=== PATIENT | male | born 1995 | race Caucasian/White ===

== ENCOUNTER 2017-01-05 14:21 | Emergency (ER) | payer MEDICARE, OTHER ==
[2017-01-05 14:33] VITALS: TEMP 98.2
[2017-01-05] MEDS ORDERED: RX INFO: IV CONTRAST WAS GIVEN 1 EACH MISC MISCELLANE PRN (15:39)
--- NOTE | 2017-01-05 15:45 | ED ---
General Adult HPI - General Chief complaint: Urogenital Stated complaint: GROIN PAIN Time Seen by Provider: 01/05/17 14:33 Source: patient, EMS Mode of arrival: EMS Limitations: no limitations - History of Present Illness Initial comments: Patient is a 21-year-old male who presents to the emergency department via private vehicle for evaluation of left lower quadrant abdominal pain as well as pain in his right-sided chest. Patient states that he was evaluated at an outside hospital approximately 2 weeks ago for similar symptoms. He states that he was told he has a varicocele but had no other acute findings and was discharged home. Patient states he believes that they did identify other findings that the ER but that they are not telling him. Patient states that if his workup reveals anything further he plans to devyn the other hospital for not telling him what they found when the evaluated him. Patient states that he had a liver biopsy at the age of 8 and ever since that time he expects experienced a pain in his right-sided lower chest at the location of that biopsy. Patient states he believes they injured him more implanted something at the time of the biopsy. Patient states that for a number of months he has been experiencing pain left- sided groin. When asked to describe the pain patient states that it's pain and points to the location of the pain. Patient does not identify any exacerbating or relieving factors for the pain. Patient also states that earlier today he felt subjectively febrile. He states that he was at his sister's house when he began to feel very hot and concerned that he was going to have a heat stroke. He states that he did not have heatstroke at that he felt very hot. Patient states he doesn't know what is wrong but he believes something is wrong inside of his body but nobody can identify. Patient states that he thinks he is going to though he cannot explain why. - Related Data Home Medications Medication Instructions Recorded Confirmed No Known Home Medications [No 01/05/17 01/05/17 Known Home Medications] Allergies Allergy/AdvReac Type Severity Reaction Status Date / Time azithromycin Allergy Unknown Verified 01/05/17 14:27 [From Zithromax Z-Bruno] Review of Systems ROS Statement: Those systems with pertinent positive or pertinent negative responses have been documented in the HPI. ROS Other: All systems not noted in ROS Statement are negative. Constitutional: Reports: fever. Denies: chills Eyes: Denies: vision change ENT: Denies: throat pain Respiratory: Denies: cough, dyspnea, wheezes, hemoptysis, stridor Cardiovascular: Reports: chest pain (right lower chest x13 years) Endocrine: Reports: fatigue Gastrointestinal: Reports: abdominal pain. Denies: nausea, vomiting, diarrhea, constipation Genitourinary: Reports: testicular mass. Denies: urgency, dysuria, frequency Musculoskeletal: Denies: back pain Skin: Denies: rash Neurological: Denies: headache, weakness Hematological/Lymphatic: Denies: easy bleeding, easy bruising Past Medical History Past Medical History: Liver Disease Additional Past Medical History / Comment(s): hep B/C History of Any Multi-Drug Resistant Organisms: None Reported Past Surgical History: Hernia Repair Additional Past Surgical History / Comment(s): liver biopsy x 3 Past Psychological History: ADD/ADHD, Depression Smoking Status: Current every day smoker Past Alcohol Use History: None Reported Past Drug Use History: None Reported General Exam Limitations: no limitations General appearance: alert, anxious Head exam: Present: atraumatic, normocephalic Eye exam: Present: normal appearance, PERRL ENT exam: Present: normal exam Neck exam: Present: normal inspection Respiratory exam: Present: normal lung sounds bilaterally. Absent: respiratory distress, wheezes, rales, rhonchi, stridor Cardiovascular Exam: Present: regular rate, normal rhythm, normal heart sounds. Absent: systolic murmur, diastolic murmur, rubs, gallop, clicks GI/Abdominal exam: Present: soft, normal bowel sounds. Absent: distended, tenderness, guarding, rebound, rigid exam: Present: scrotal swelling (left sided varicocele). Absent: testicular tenderness, urethral discharge Extremities exam: Present: normal inspection, full ROM, normal capillary refill. Absent: tenderness, pedal edema, joint swelling, calf tenderness Back exam: Present: normal inspection Neurological exam: Present: alert, oriented X3, CN II-XII intact Psychiatric exam: Present: agitated, other (odd affect, paranoid and defensive, tangential thoughts) Course Vital Signs 01/05/17 01/05/17 01/05/17 14:27 16:30 17:07 Temperature 98.2 F 98.2 F Pulse Rate 52 L 50 L 53 L Respiratory 16 18 Rate Blood Pressure 114/68 119/69 119/72 O2 Sat by Pulse 100 98 100 Oximetry Medical Decision Making - Medical Decision Making The patient was seen and evaluated, history was obtained from the patient Vital signs were reviewed, patient was noted to be bradycardic however this is not unexpected for a physically fit young man who is not having any lightheadedness History is somewhat vague and all over the place. The patient appears to be somewhat paranoid and had likely has underlying psychiatric illness. When questioned about previous psychiatric history the patient denies any. However the patient does state he's been hospitalized multiple times in hospitals that were different from this, when asked to expand on this patient states he doesn' t want to talk about it this is not why he is here today. Patient has a diagnosed left varicocele, he was evaluated and [facility] and referred to urology however he has moved appear since then and needs follow-up in this area. Patient also has subjective left lower groin pain, concerning for hernia. Physical exam with possible small inguinal hernia, I will plan to computed tomography scan for possible hernia. Chest x-ray was ordered due to the patient's complaint of persistent right- sided chest pain. Patient seems to indicate that this pain is been present since his liver biopsy at the age of 8. However patient expresses concern that this pain may be something life threatening, physical exam is unremarkable but I will x-ray to evaluate the chest. I advised the patient plan for IV, lab work, computed tomography scan of the abdomen and chest x-ray. Patient was then overheard talking on the phone stating that he had hernia and needed to go to emergent surgery and that he would not be able to leave the hospital for a couple of days and that he will be able to walk for some time. Are not sure patient obtain this information is not the plan of care for him. CBC and BMP were unremarkable, chest x-ray with no acute findings computed tomography scan of the abdomen had no acute findings. All results were discussed with the patient who again expresses concern that something is wrong. Patient seems very annoyed. I asked the patient if he would like referral to outpatient therapy or psychiatry for his anxiety. Patient states that he can get his own follow-up and does not want to talk to social insurance adviser major case detective. I advised the patient that he needs to follow up with urology for further evaluation of his varicocele. I also advised the patient that he would be best served by establishing care with a primary care physician who could see him repeatedly for continuity of care of his multiple complaints. Patient expressed understanding of this plan. Questions pertaining to care were answered to the best my ability and the patient was discharged home. - Lab Data Result diagrams: 01/05/17 15:50 01/05/17 15:50 Lab Results 01/05/17 01/05/17 01/05/17 Range/Units 15:50 15:50 15:50 WBC 8.2 (3.8-10.6) k/uL RBC 4.41 (4.30-5.90) m/uL Hgb 14.1 (13.0-17.5) gm/dL Hct 39.5 (39.0-53.0) % MCV 89.5 (80.0-100.0) fL MCH 31.9 (25.0-35.0) pg MCHC 35.6 (31.0-37.0) g/dL RDW 14.3 (11.5-15.5) % Plt Count 208 (150-450) k/uL Neutrophils % 72 % Lymphocytes % 20 % Monocytes % 5 % Eosinophils % 1 % Basophils % 1 % Neutrophils # 5.9 (1.3-7.7) k/uL Lymphocytes # 1.6 (1.0-4.8) k/uL Monocytes # 0.4 (0-1.0) k/uL Eosinophils # 0.1 (0-0.7) k/uL Basophils # 0.0 (0-0.2) k/uL Sodium 143 (137-145) mmol/L Potassium 3.9 (3.5-5.1) mmol/L Chloride 105 (98-107) mmol/L Carbon Dioxide 29 (22-30) mmol/L Anion Gap 9 mmol/L BUN 10 (9-20) mg/dL Creatinine 0.74 (0.66-1.25) mg/dL Est GFR (MDRD) Af Amer >60 (>60 ml/min/1.73 sqM) Est GFR (MDRD) Non-Af >60 (>60 ml/min/1.73 sqM) Glucose 84 (74-99) mg/dL Calcium 9.5 (8.4-10.2) mg/dL Total Bilirubin 1.0 (0.2-1.3) mg/dL AST 21 (17-59) U/L ALT 26 (21-72) U/L Alkaline Phosphatase 50 (38-126) U/L Total Protein 7.4 (6.3-8.2) g/dL Albumin 4.5 (3.5-5.0) g/dL Urine Color Yellow Urine Appearance Clear (Clear) Urine pH 6.5 (5.0-8.0) Ur Specific [place] 1.023 (1.001-1.035) Urine Protein Trace H (Negative) Urine Glucose (UA) Negative (Negative) Urine Ketones Negative (Negative) Urine Blood Negative (Negative) Urine Nitrite Negative (Negative) Urine Bilirubin Negative (Negative) Urine Urobilinogen 3.0 (<2.0) mg/dL Ur Leukocyte Esterase Negative (Negative) Disposition Clinical Impression: Varicocele, Inguinal hernia Disposition: HOME SELF-CARE Instructions: Inguinal Hernia (ED), Varicocele (ED) Referrals: None,Stated [Primary Care Provider] - 1-2 days Time of Disposition: 17:04
[2017-01-05 16:06] LABS: Basophils % (A) 1 %; CH 32.8; CHCM 36.8; Eosinophils # (A) 0.1 k/uL (0-0.7); Eosinophils % (A) 1 %; HCT 39.5 % (39.0-53.0); HDW 2.88; HGB 14.1 gm/dL (13.0-17.5); Luc # (Auto) 0.13; Luc % (Auto) 2; Lymphocytes # (A) 1.6 k/uL (1.0-4.8); Lymphocytes % (A) 20 %; MCH 31.9 pg (25.0-35.0); MCHC 35.6 g/dL (31.0-37.0); MCV 89.5 fL (80.0-100.0); Mean Platelet Volume 7.7; Monocytes # (A) 0.4 k/uL (0-1.0); Monocytes % (A) 5 %; Neutrophils # (A) 5.9 k/uL (1.3-7.7); Neutrophils % (A) 72 %; RBC 4.41 m/uL (4.30-5.90); RDW 14.3 % (11.5-15.5); WBC 8.2 k/uL (3.8-10.6); WBC (Perox) 7.98
[2017-01-05 16:12] LABS: Appearance,Urine Clear (Clear); Bilirubin,Urine Negative (Negative); Glucose,Urine (UA) Negative (Negative); Ketones,Urine Negative (Negative); Leukocyte Esterase,Urine Negative (Negative); Nitrite,Urine Negative (Negative); PH, Urine 6.5 (5.0-8.0); Protein,Urine Trace (Negative); Specific Gravity,Urine 1.023 (1.001-1.035); UA Billing (MACRO vs. MICRO) CHEM
[2017-01-05 16:14] LABS: ALT 26 U/L (21-72); AST 21 U/L (17-59); Alkaline Phosphatase 50 U/L (38-126); Anion Gap 9 mmol/L; Blood Urea Nitrogen 10 mg/dL (9-20); Calcium 9.5 mg/dL (8.4-10.2); Carbon Dioxide 29 mmol/L (22-30); Chloride 105 mmol/L (98-107); Glucose 84 mg/dL (74-99); Non-African American GFR(MDRD) >60 (>60 ml/min/1.73 sqM); Potassium 3.9 mmol/L (3.5-5.1); Sodium 143 mmol/L (137-145); Total Protein 7.4 g/dL (6.3-8.2)
[2017-01-05 16:31] VITALS: RESP 18
--- NOTE | 2017-01-05 16:39 | XR ---
EXAMINATION TYPE: XR chest 2V DATE OF EXAM: 01/05/2017 COMPARISON: Chest x-ray March 05, 2015. HISTORY: Chest pain per order. History of asthma. TECHNIQUE: Frontal and lateral views of the chest are obtained. FINDINGS: There is no focal air space opacity, pleural effusion, or pneumothorax seen. The cardiac silhouette size is within normal limits. The osseous structures are intact. Contrast from recent CT is seen in visualized portion of right kidney collecting system. IMPRESSION: No acute process. No significant change from recent chest x-ray.
--- NOTE | 2017-01-05 16:43 | CT ---
EXAMINATION TYPE: CT abdomen pelvis w con DATE OF EXAM: 01/05/2017 COMPARISON: NONE HISTORY: Left groin pain and possible hernia. Bilateral flank pain. CT DLP: 360.60 mGycm, Automated Exposure Control for Dose Reduction was Utilized. CONTRAST: CT scan of the abdomen and pelvis is performed without oral but with IV Contrast, patient injected wi th 100 mL of Omnipaque 300. FINDINGS: Patient has very little intra-abdominal fat evaluation suboptimal. LUNG BASES: No significant abnormality is appreciated. LIVER/GB: No significant abnormality is appreciated. PANCREAS: No significant abnormality is seen. SPLEEN: No significant abnormality is seen. ADRENALS: No significant abnormality is seen. KIDNEYS: There is symmetric cortical medullary uptake and excretion from both kidneys without evidenc e of hydronephrosis or obstructing calculus clearly seen. BOWEL: Evaluation bowel is suboptimal as patient has virtually no intra-abdominal fat and due to lack of enteric contrast. There is no suspicious small or large bowel dilatation seen. No bowel or fat-co ntaining inguinal hernia is present bilaterally. Portion of normal-appearing appendix is seen best on coronal image 23 in the right pelvis. PROSTATE/SEMINAL VESICLES: No gross abnormality seen. LYMPH NODES: No greater than 1cm abdominal or pelvic lymph nodes are appreciated. Slightly prominent but subcentimeter bilateral groin lymph nodes are noted. OSSEOUS STRUCTURES: Nonspecific sclerosis along right inferior T11 vertebra is present. OTHER: Small amount of free fluid is seen in right pelvis of uncertain etiology near axial image 72 a nd coronal image 52. IMPRESSION: Small amount of free fluid in the right pelvis of uncertain etiology. No suspicious bowel or fat-containing inguinal hernia. No additional significant finding identified.
[2017-01-05 17:08] VITALS: BP 119/72; PULSE 53
== END 2017-01-05 17:19 | disposition home or self-care (01) ==
LOC: EC 14:21
DX: I86.1 Scrotal varices (principal); K40.90 Unilateral inguinal hernia, without obstruction or gangrene, not specified as recurrent; R07.9 Chest pain, unspecified; F17.200 Nicotine dependence, unspecified, uncomplicated; Z88.1 Allergy status to other antibiotic agents; Z98.890 Other specified postprocedural states
CPT/HCPCS: 36415; 80053; 85025; 81003; 71020; 74177; 99284; Q9967

== ENCOUNTER 2017-01-10 17:42 | Emergency (ER) | payer MEDICARE, OTHER ==
[2017-01-10] MEDS ORDERED: methylPREDNISolone SOD SUCCI 125 MG/2 ML VIAL IV STA (17:59)
[2017-01-10] MEDS ORDERED: FAMOTIDINE 20 MG/2 ML VIAL IV STA (17:59)
[2017-01-10 18:02] VITALS: BP 131/77; PULSE 75; RESP 18; TEMP 97.9
--- NOTE | 2017-01-10 18:25 | ED ---
Allergic Reaction HPI - General Chief complaint: Allergic Reaction Stated complaint: allergic reaction Time Seen by Provider: 01/10/17 17:42 Source: patient, EMS, RN notes reviewed Mode of arrival: EMS Limitations: no limitations - History of Present Illness Initial Comments: This a 21-year-old male presents emergency Department chief complaint rash. Patient states he woke up today with a rash started on his chest which has now spread to his upper thigh region. Patient states that it is very itchy but is improved after receiving Benadryl from EMS. Patient states she had no difficulty breathing or difficulty swallowing. He denies any new medications including soaps or lotions or detergents. Patient states that he does not take any regular medications currently. Patient states that he has a history of hepatitis though he states that he is in remission. Patient denies any fever, chills or any recent illnesses. Patient did admit to smoking marijuana yesterday prior to going to sleep and states that he's never had a reaction like this. He does not believe it's from the marijuana. - Related Data Previous Rx's Medication Instructions Recorded diphenhydrAMINE [Benadryl] 50 mg PO QID PRN #20 capsule 01/10/17 predniSONE 50 mg PO DAILY #4 tab 01/10/17 Allergies Allergy/AdvReac Type Severity Reaction Status Date / Time azithromycin Allergy Unknown Verified 01/05/17 14:27 [From Zithromax Z-Bruno] Review of Systems ROS Statement: Those systems with pertinent positive or pertinent negative responses have been documented in the HPI. ROS Other: All systems not noted in ROS Statement are negative. Past Medical History Past Medical History: Liver Disease Additional Past Medical History / Comment(s): hep B/C History of Any Multi-Drug Resistant Organisms: None Reported Past Surgical History: Hernia Repair Additional Past Surgical History / Comment(s): liver biopsy x 3 Past Psychological History: ADD/ADHD, Anxiety, Depression Smoking Status: Current some day smoker Past Alcohol Use History: Rare Past Drug Use History: None Reported General Exam Limitations: no limitations General appearance: alert, in no apparent distress Head exam: Present: atraumatic, normocephalic, normal inspection Eye exam: Present: normal appearance, PERRL, EOMI. Absent: scleral icterus, conjunctival injection, periorbital swelling ENT exam: Present: normal exam, normal oropharynx, mucous membranes moist, other (Swallowing secretions well) Neck exam: Present: normal inspection. Absent: tenderness, meningismus, lymphadenopathy Respiratory exam: Present: normal lung sounds bilaterally. Absent: respiratory distress, wheezes, rales, rhonchi, stridor Cardiovascular Exam: Present: regular rate, normal rhythm, normal heart sounds. Absent: systolic murmur, diastolic murmur, rubs, gallop, clicks Skin exam: Present: rash (Fine macular rash noted from chest, back region that extends down to the upper thighs) Course Vital Signs 01/10/17 17:49 Temperature 97.9 F Pulse Rate 75 Respiratory 18 Rate Blood Pressure 131/77 O2 Sat by Pulse 100 Oximetry Medical Decision Making - Medical Decision Making 19-year-old male present emergency department for rash. Patient has a fine macular rash though he is in no acute distress no respiratory issues he had no difficulty swallowing difficulty breathing. Patient states he does feel slightly improved after the Benadryl and steroids. This could be more viral rash versus possible atypical ALLERGIC reaction. Patient will be discharged on steroids and Benadryl. Return parameters were discussed. Disposition Clinical Impression: Macular rash, Pruritus Disposition: HOME SELF-CARE Condition: Stable Instructions: Acute Rash (ED) Additional Instructions: Please return to the Emergency Department if symptoms worsen or any other concerns. Prescriptions: diphenhydrAMINE [Benadryl] 50 mg PO QID PRN #20 capsule PRN Reason: allergic symtpoms predniSONE 50 mg PO DAILY #4 tab Referrals: Laith Benton MD [Primary Care Provider] - 1-2 days Time of Disposition: 18:42
== END 2017-01-10 18:53 | disposition home or self-care (01) ==
LOC: EC 17:42
DX: L29.9 Pruritus, unspecified (principal); R21 Rash and other nonspecific skin eruption; F17.200 Nicotine dependence, unspecified, uncomplicated; Z88.1 Allergy status to other antibiotic agents
CPT/HCPCS: 99284; 96374; 96375; J2930

== ENCOUNTER 2017-01-11 23:11 | Emergency (ER) | payer MEDICARE, OTHER ==
[2017-01-11 23:25] VITALS: RESP 18
[2017-01-12 00:22] LABS: Basophils # (A) 0.2 k/uL (0-0.2); Basophils % (A) 1 %; CH 32.6; CHCM 36.5; Eosinophils # (A) 0.3 k/uL (0-0.7); Eosinophils % (A) 2 %; HDW 2.86; Luc # (Auto) 0.33; Luc % (Auto) 2; Lymphocytes # (A) 1.9 k/uL (1.0-4.8); Lymphocytes % (A) 10 %; MCH 31.5 pg (25.0-35.0); MCHC 35.1 g/dL (31.0-37.0); MCV 89.8 fL (80.0-100.0); Mean Platelet Volume 7.6; Monocytes % (A) 5 %; Neutrophils # (A) 14.8 k/uL (1.3-7.7); Neutrophils % (A) 80 %; RBC 4.45 m/uL (4.30-5.90); RDW 13.2 % (11.5-15.5); WBC 18.5 k/uL (3.8-10.6); WBC (Perox) 17.78
[2017-01-12 00:34] LABS: Anion Gap 12 mmol/L; Blood Urea Nitrogen 19 mg/dL (9-20); Calcium 9.9 mg/dL (8.4-10.2); Carbon Dioxide 27 mmol/L (22-30); Chloride 106 mmol/L (98-107); Glucose 110 mg/dL (74-99); Non-African American GFR(MDRD) >60 (>60 ml/min/1.73 sqM); Potassium 3.9 mmol/L (3.5-5.1); Sodium 145 mmol/L (137-145)
--- NOTE | 2017-01-12 01:14 | ED ---
Skin/Abscess/FB HPI - General Chief complaint: Skin/Abscess/Foreign Body Stated complaint: Allergic Reaction/MARQUES Time Seen by Provider: 01/11/17 23:16 Source: patient, EMS Mode of arrival: EMS Limitations: no limitations - History of Present Illness Initial comments: This patient is 21-year-old man who presents to be evaluated for hives. He started to have a reaction yesterday, was given medication here and improved, however things recurred today. MD complaint: rash Onset/Timin -: days(s) Tetanus Up to Date: yes Location: generalized Severity: moderate Quality: burning, other (Itching) Consistency: constant Improves with: none Worsens with: none Associated symptoms: shortness of breath - Related Data Home Medications Medication Instructions Recorded Confirmed Albuterol Sulfate [Proair Hfa] 1 - 2 puff INHALATION RT-Q4H PRN 01/11/17 diphenhydrAMINE [Benadryl] 50 mg PO QID PRN 01/11/17 01/11/17 Previous Rx's Medication Instructions Recorded predniSONE 50 mg PO DAILY #4 tab 01/10/17 Allergies Allergy/AdvReac Type Severity Reaction Status Date / Time azithromycin Allergy Unknown Verified 01/05/17 14:27 [From Zithromax Z-Bruno] Review of Systems ROS Statement: Those systems with pertinent positive or pertinent negative responses have been documented in the HPI. ROS Other: All systems not noted in ROS Statement are negative. Constitutional: Denies: fever, chills Respiratory: Denies: cough, dyspnea Cardiovascular: Denies: chest pain Gastrointestinal: Denies: abdominal pain, vomiting, diarrhea Skin: Reports: rash, pruritus Past Medical History Past Medical History: Liver Disease Additional Past Medical History / Comment(s): hep B/C History of Any Multi-Drug Resistant Organisms: None Reported Past Surgical History: Hernia Repair Additional Past Surgical History / Comment(s): liver biopsy x 3 Past Psychological History: ADD/ADHD, Anxiety, Bipolar, Depression Smoking Status: Current every day smoker Past Alcohol Use History: Occasional Past Drug Use History: Marijuana General Exam Limitations: no limitations General appearance: alert, in no apparent distress Head exam: Present: atraumatic, normocephalic Eye exam: Present: normal appearance. Absent: scleral icterus, conjunctival injection ENT exam: Present: normal oropharynx Respiratory exam: Present: normal lung sounds bilaterally. Absent: respiratory distress, wheezes, rales, rhonchi, stridor Cardiovascular Exam: Present: regular rate, normal rhythm, normal heart sounds Extremities exam: Present: normal inspection Skin exam: Present: warm, dry, intact, normal color, other (Patient has a papular, erythematous rash consistent with viral exanthem.). Absent: rash, petechiae Course Vital Signs 01/11/17 01/12/17 01/12/17 23:22 00:49 01:53 Temperature 97.8 F 97.8 F 97.3 F L Pulse Rate 77 65 70 Respiratory 18 18 18 Rate Blood Pressure 127/59 111/58 131/60 O2 Sat by Pulse 100 98 98 Oximetry Medical Decision Making - Lab Data Result diagrams: 01/12/17 00:12 01/12/17 00:12 Lab Results 01/12/17 01/12/17 01/12/17 Range/Units 00:12 00:12 00:12 WBC 18.5 H (3.8-10.6) k/uL RBC 4.45 (4.30-5.90) m/uL Hgb 14.0 (13.0-17.5) gm/dL Hct 40.0 (39.0-53.0) % MCV 89.8 (80.0-100.0) fL MCH 31.5 (25.0-35.0) pg MCHC 35.1 (31.0-37.0) g/dL RDW 13.2 (11.5-15.5) % Plt Count 222 (150-450) k/uL Neutrophils % 80 % Lymphocytes % 10 % Monocytes % 5 % Eosinophils % 2 % Basophils % 1 % Neutrophils # 14.8 H (1.3-7.7) k/uL Lymphocytes # 1.9 (1.0-4.8) k/uL Monocytes # 1.0 (0-1.0) k/uL Eosinophils # 0.3 (0-0.7) k/uL Basophils # 0.2 (0-0.2) k/uL Sodium 145 (137-145) mmol/L Potassium 3.9 (3.5-5.1) mmol/L Chloride 106 (98-107) mmol/L Carbon Dioxide 27 (22-30) mmol/L Anion Gap 12 mmol/L BUN 19 (9-20) mg/dL Creatinine 0.80 (0.66-1.25) mg/dL Est GFR (MDRD) Af Amer >60 (>60 ml/min/1.73 sqM) Est GFR (MDRD) Non-Af >60 (>60 ml/min/1.73 sqM) Glucose 110 H (74-99) mg/dL Calcium 9.9 (8.4-10.2) mg/dL Heterophile Antibody (Negative) Anti-Streptolysin O Ab (0-200) IU/mL Group A Strep Rapid Negative (Negative) 01/12/17 01/12/17 Range/Units 00:12 00:12 WBC (3.8-10.6) k/uL RBC (4.30-5.90) m/uL Hgb (13.0-17.5) gm/dL Hct (39.0-53.0) % MCV (80.0-100.0) fL MCH (25.0-35.0) pg MCHC (31.0-37.0) g/dL RDW (11.5-15.5) % Plt Count (150-450) k/uL Neutrophils % % Lymphocytes % % Monocytes % % Eosinophils % % Basophils % % Neutrophils # (1.3-7.7) k/uL Lymphocytes # (1.0-4.8) k/uL Monocytes # (0-1.0) k/uL Eosinophils # (0-0.7) k/uL Basophils # (0-0.2) k/uL Sodium (137-145) mmol/L Potassium (3.5-5.1) mmol/L Chloride (98-107) mmol/L Carbon Dioxide (22-30) mmol/L Anion Gap mmol/L BUN (9-20) mg/dL Creatinine (0.66-1.25) mg/dL Est GFR (MDRD) Af Amer (>60 ml/min/1.73 sqM) Est GFR (MDRD) Non-Af (>60 ml/min/1.73 sqM) Glucose (74-99) mg/dL Calcium (8.4-10.2) mg/dL Heterophile Antibody Negative (Negative) Anti-Streptolysin O Ab <25 (0-200) IU/mL Group A Strep Rapid (Negative) Disposition Clinical Impression: Viral exanthem Disposition: HOME SELF-CARE Condition: Fair Instructions: Viral Exanthem (ED) Referrals: Laith Benton MD [Primary Care Provider] - 1-2 days
[2017-01-12 01:54] VITALS: BP 131/60; PULSE 70; TEMP 97.3
== END 2017-01-12 01:53 | disposition home or self-care (01) ==
LOC: EC 23:11
DX: B09 Unspecified viral infection characterized by skin and mucous membrane lesions (principal); R06.02 Shortness of breath; F17.200 Nicotine dependence, unspecified, uncomplicated; Z88.1 Allergy status to other antibiotic agents
CPT/HCPCS: 36415; 80048; 85025; 86060; 86308; 87081; 87430; 99283

== ENCOUNTER 2017-03-03 19:34 | Emergency (ER) | payer MEDICARE, OTHER ==
[2017-03-03 19:44] VITALS: RESP 16
[2017-03-03] MEDS ORDERED: SODIUM CHLORIDE 0.9% 500 ML IV ONE (20:07)
--- NOTE | 2017-03-03 20:18 | ED ---
General Adult HPI - General Chief complaint: Back Pain/Injury Stated complaint: back pain Time Seen by Provider: 03/03/17 19:44 Source: patient, EMS Mode of arrival: EMS Limitations: no limitations - History of Present Illness Initial comments: 21-year-old male patient percents to emergency department today with multiple complaints including lower back pain, abdominal pain, and swollen lymph nodes. He states that the lower back pain has been recurrent since he was a child. He states that he has flare ups every now and then. Patient states that this pain has been gone the last couple of weeks. He states the pain is radiating down the left leg. He denies any numbness or tingling in his lower extremities. Denies any loss of bowel or bladder control. Denies any saddle anesthesia. This is also had some generalized abdominal discomfort and abdominal bloating over the last couple of weeks. He denies any nausea or vomiting with this denies any diarrhea or constipation. He states that he has had problems with his abdomen since having a liver biopsy done at age 8. He reports that he was diagnosed with hepatitis and had jaundice, but he is unsure which type of hepatitis he was diagnosed with. He state he has been in remission. Patient is also reporting generalized lymphadenopathy, states he feels enlarged lymph nodes in his bilateral axilla, chest, and bilateral groin. This has been going on for several months. Patient denies any recent rash, fever, chills, shortness breath, chest pain, dizziness, weakness, hematuria, dysuria, urinary urgency, urinary frequency, headache, visual changes, or any other complaints. He states that he recently moved to the area and does not have a primary care physician. He does report use of marijuana and risky sexual behavior. - Related Data Home Medications Medication Instructions Recorded Confirmed Albuterol Sulfate [Proair Hfa] 1 - 2 puff INHALATION RT-Q4H PRN 01/11/17 Previous Rx's Medication Instructions Recorded Cyclobenzaprine [Flexeril] 10 mg PO TID #15 tab 03/03/17 Ibuprofen [Motrin] 600 mg PO Q6HR PRN #30 tab 03/03/17 Allergies Allergy/AdvReac Type Severity Reaction Status Date / Time azithromycin Allergy Unknown Verified 03/03/17 20:05 [From Zithromax Z-Bruno] Review of Systems ROS Statement: Those systems with pertinent positive or pertinent negative responses have been documented in the HPI. ROS Other: All systems not noted in ROS Statement are negative. Past Medical History Past Medical History: Liver Disease Additional Past Medical History / Comment(s): hep B/C History of Any Multi-Drug Resistant Organisms: None Reported Past Surgical History: Hernia Repair Additional Past Surgical History / Comment(s): liver biopsy x 3 Past Psychological History: ADD/ADHD, Anxiety, Bipolar, Depression, Schizophrenia Smoking Status: Current every day smoker Past Alcohol Use History: Occasional Past Drug Use History: Marijuana General Exam Limitations: no limitations General appearance: alert, in no apparent distress, other (Physical well- developed, well-nourished adult male patient no acute distress. Vital signs upon presentation are temperature 97.9F, pulse 65, respirations 16, blood pressure 131/59, pulse ox 99% on room air.) Eye exam: Present: normal appearance, PERRL, EOMI. Absent: scleral icterus, conjunctival injection, periorbital swelling ENT exam: Present: normal exam, normal oropharynx, mucous membranes moist, TM's normal bilaterally Neck exam: Present: normal inspection, lymphadenopathy (Anterior cervical). Absent: tenderness, meningismus Respiratory exam: Present: normal lung sounds bilaterally. Absent: respiratory distress, wheezes, rales, rhonchi, stridor Cardiovascular Exam: Present: regular rate, normal rhythm, normal heart sounds. Absent: systolic murmur, diastolic murmur, rubs, gallop, clicks GI/Abdominal exam: Present: soft, normal bowel sounds, other (Lymphadenopathy bilateral inguinal region.). Absent: distended, tenderness, guarding, rebound, rigid Extremities exam: Present: normal inspection, full ROM, normal capillary refill , other (lymphadenopathy bilateral axilla. ). Absent: tenderness, pedal edema, joint swelling, calf tenderness Back exam: Present: normal inspection. Absent: tenderness, vertebral tenderness Neurological exam: Present: alert, oriented X3, CN II-XII intact Psychiatric exam: Present: normal affect, normal mood Skin exam: Present: warm, dry, intact, normal color. Absent: rash Course Vital Signs 03/03/17 03/03/17 19:37 21:21 Temperature 97.9 F 97.8 F Pulse Rate 65 72 Respiratory 16 16 Rate Blood Pressure 131/59 128/78 O2 Sat by Pulse 99 100 Oximetry Medical Decision Making - Medical Decision Making 21-year-old male patient presented with multiple complaints today, lower back pain, abdominal pain, and generalized lymphadenopathy. Physical examination did reveal enlarged lymph nodes to the bilateral axilla, bilateral inguinal region, and anterior cervical lymph nodes. CBC and comp were performed and were unremarkable. Chest x-ray was performed and showed no acute cardio pulmonary process. Patient did report that his abdominal pain has been going on since the age of 8, he has been evaluated multiple times for this. Patient also reported that his lower back pain is chronic in nature, he had no new symptoms. He was given ibuprofen for pain control. He was instructed to establish with a primary care physician for management of his chronic conditions. He was referred to general surgery for possible lymph node biopsy, HIV testing was completed with patient's consent as well. He was instructed to return here immediately for any new, worsening, or concerning symptoms. He verbalized understanding and agree with this plan. - Lab Data Result diagrams: 03/03/17 20:31 03/03/17 20:31 Lab Results 03/03/17 03/03/17 03/03/17 Range/Units 20:15 20:31 20:31 WBC 8.3 (3.8-10.6) k/uL RBC 4.64 (4.30-5.90) m/uL Hgb 14.7 (13.0-17.5) gm/dL Hct 41.9 (39.0-53.0) % MCV 90.2 (80.0-100.0) fL MCH 31.6 (25.0-35.0) pg MCHC 35.0 (31.0-37.0) g/dL RDW 14.1 (11.5-15.5) % Plt Count 225 (150-450) k/uL Neutrophils % 70 % Lymphocytes % 21 % Monocytes % 6 % Eosinophils % 1 % Basophils % 1 % Neutrophils # 5.9 (1.3-7.7) k/uL Lymphocytes # 1.8 (1.0-4.8) k/uL Monocytes # 0.5 (0-1.0) k/uL Eosinophils # 0.1 (0-0.7) k/uL Basophils # 0.0 (0-0.2) k/uL Hyperchromasia Slight Sodium 141 (137-145) mmol/L Potassium 3.7 (3.5-5.1) mmol/L Chloride 104 (98-107) mmol/L Carbon Dioxide 26 (22-30) mmol/L Anion Gap 11 mmol/L BUN 13 (9-20) mg/dL Creatinine 0.65 L (0.66-1.25) mg/dL Est GFR (MDRD) Af Amer >60 (>60 ml/min/1.73 sqM) Est GFR (MDRD) Non-Af >60 (>60 ml/min/1.73 sqM) Glucose 86 (74-99) mg/dL Calcium 9.9 (8.4-10.2) mg/dL Total Bilirubin 0.9 (0.2-1.3) mg/dL AST 21 (17-59) U/L ALT 23 (21-72) U/L Alkaline Phosphatase 48 (38-126) U/L Total Protein 7.4 (6.3-8.2) g/dL Albumin 4.6 (3.5-5.0) g/dL Amylase 37 (30-110) U/L Lipase 105 (23-300) U/L Urine Color Light Yellow Urine Appearance Clear (Clear) Urine pH 8.0 (5.0-8.0) Ur Specific [place] 1.005 (1.001-1.035) Urine Protein Negative (Negative) Urine Glucose (UA) Negative (Negative) Urine Ketones Negative (Negative) Urine Blood Negative (Negative) Urine Nitrite Negative (Negative) Urine Bilirubin Negative (Negative) Urine Urobilinogen <2.0 (<2.0) mg/dL Ur Leukocyte Esterase Negative (Negative) Urine Opiates Screen Not Detected (NotDetected) Ur Oxycodone Screen Not Detected (NotDetected) Urine Methadone Screen Not Detected (NotDetected) Ur Propoxyphene Screen Not Detected (NotDetected) Ur Barbiturates Screen Not Detected (NotDetected) U Tricyclic Antidepress Not Detected (NotDetected) Ur Phencyclidine Scrn Not Detected (NotDetected) Ur Amphetamines Screen Not Detected (NotDetected) U Methamphetamines Scrn Not Detected (NotDetected) U Benzodiazepines Scrn Not Detected (NotDetected) Urine Cocaine Screen Not Detected (NotDetected) U Marijuana (THC) Screen Detected H (NotDetected) - Radiology Data Radiology results: report reviewed, image reviewed 2 views of the chest are obtained and shows a heart and mediastinum are normal. Lungs are clear. Diaphragm is normal. Bony thorax appears normal. Impression by Dr. Kearney shows normal chest with no change. Disposition Clinical Impression: Back pain, Lymphadenopathy Disposition: HOME SELF-CARE Condition: Good Instructions: Lymphadenopathy (ED), Chronic Back Pain (ED) Additional Instructions: Establish with a primary care physician. Follow up with surgery for biopsy of enlarged lymph nodes. Follow up with emergency room specialist for further evaluation of your low back pain. Return here immediately for any new, worsening, or concerning symptoms. Prescriptions: Cyclobenzaprine [Flexeril] 10 mg PO TID #15 tab Ibuprofen [Motrin] 600 mg PO Q6HR PRN #30 tab PRN Reason: Pain Referrals: Laith Benton MD [REFERRING] - 1-2 days Uriel Copeland DO [Doctor of Osteopathic Medicine] - 1-2 days Maricruz Villarreal DO [Doctor of Osteopathic Medicine] - 1-2 days Time of Disposition: 21:11
[2017-03-03 20:25] LABS: Appearance,Urine Clear (Clear); Bilirubin,Urine Negative (Negative); Glucose,Urine (UA) Negative (Negative); Ketones,Urine Negative (Negative); Leukocyte Esterase,Urine Negative (Negative); Nitrite,Urine Negative (Negative); Protein,Urine Negative (Negative); Specific Gravity,Urine 1.005 (1.001-1.035); UA Billing (MACRO vs. MICRO) CHEM; Urobilinogen,Urine <2.0 mg/dL (<2.0)
--- NOTE | 2017-03-03 20:39 | XR ---
EXAMINATION TYPE: XR chest 2V DATE OF EXAM: 03/03/2017 COMPARISON: 01/05/2017 HISTORY: Chest pain TECHNIQUE: Frontal and lateral views of the chest are obtained. FINDINGS: Heart and mediastinum are normal. Lungs are clear. Diaphragm is normal. Bony thorax appear s normal. IMPRESSION: Normal chest. No change.
[2017-03-03 20:53] LABS: Basophils % (A) 1 %; CHCM 37.8; Eosinophils # (A) 0.1 k/uL (0-0.7); Eosinophils % (A) 1 %; HCT 41.9 % (39.0-53.0); HDW 2.86; HGB 14.7 gm/dL (13.0-17.5); Hyperchromasia Slight; Luc # (Auto) 0.12; Luc % (Auto) 1; Lymphocytes # (A) 1.8 k/uL (1.0-4.8); Lymphocytes % (A) 21 %; MCH 31.6 pg (25.0-35.0); MCV 90.2 fL (80.0-100.0); Mean Platelet Volume 7.4; Monocytes # (A) 0.5 k/uL (0-1.0); Monocytes % (A) 6 %; Neutrophils # (A) 5.9 k/uL (1.3-7.7); Neutrophils % (A) 70 %; RBC 4.64 m/uL (4.30-5.90); RDW 14.1 % (11.5-15.5); WBC 8.3 k/uL (3.8-10.6); WBC (Perox) 8.64
[2017-03-03 21:02] LABS: ALT 23 U/L (21-72); AST 21 U/L (17-59); Alkaline Phosphatase 48 U/L (38-126); Amylase 37 U/L (30-110); Anion Gap 11 mmol/L; Blood Urea Nitrogen 13 mg/dL (9-20); Calcium 9.9 mg/dL (8.4-10.2); Carbon Dioxide 26 mmol/L (22-30); Chloride 104 mmol/L (98-107); Glucose 86 mg/dL (74-99); Non-African American GFR(MDRD) >60 (>60 ml/min/1.73 sqM); Potassium 3.7 mmol/L (3.5-5.1); Sodium 141 mmol/L (137-145); Total Bilirubin 0.9 mg/dL (0.2-1.3); Total Protein 7.4 g/dL (6.3-8.2)
[2017-03-03 21:24] VITALS: BP 128/78; PULSE 72; TEMP 97.8
== END 2017-03-03 21:21 | disposition home or self-care (01) ==
LOC: EC 19:34
DX: R59.1 Generalized enlarged lymph nodes (principal); M54.5 Low back pain; G89.29 Other chronic pain; F17.200 Nicotine dependence, unspecified, uncomplicated; Z88.1 Allergy status to other antibiotic agents; Z98.890 Other specified postprocedural states
CPT/HCPCS: 36415; 71020; 80053; 80306; 81003; 82150; 83690; 85025; 87390; 99284

== ENCOUNTER 2017-08-28 10:03 | Emergency (ER) | payer MEDICARE, OTHER ==
[2017-08-28] MEDS ORDERED: diphenhydrAMINE 50 MG/ML 1 ML VIAL IVP STA (10:29)
[2017-08-28] MEDS ORDERED: METOCLOPRAMIDE 5 MG/ML 2 ML VIAL IVP STA (10:29)
[2017-08-28] MEDS ORDERED: SODIUM CHLORIDE 0.9% 1,000 ML IV STA (10:29)
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
[2017-08-28 11:42] VITALS: BP 111/59; PULSE 84; RESP 17; TEMP 98.2
== END 2017-08-28 11:48 | disposition home or self-care (01) ==
LOC: EC 10:03
DX: R51 Headache (principal); Z86.69 Personal history of other diseases of the nervous system and sense organs; F17.200 Nicotine dependence, unspecified, uncomplicated; Z88.1 Allergy status to other antibiotic agents
CPT/HCPCS: 70450; 99283; 96374; 96375; 96361; J1200; J2765

== ENCOUNTER 2018-01-31 00:04 | Emergency (ER) | payer MEDICARE, OTHER ==
[2018-01-31 00:11] VITALS: RESP 18
[2018-01-31] MEDS ORDERED: MAG HYDROX/AL HYDROX/SIMETH 30 ML, HYOSCYAMINE ELIXIR 10 ML, CIMETIDINE HCL 300 MG, LID... PO STA ×4 (01:23)
--- NOTE | 2018-01-31 01:26 | ED ---
Abdominal Pain HPI - General Chief Complaint: Abdominal Pain Stated Complaint: Chest Pain Time Seen by Provider: 01/31/18 00:37 Source: patient Mode of arrival: ambulatory Limitations: no limitations - History of Present Illness Initial Comments: 22-year-old male patient presents to the emergency department today for evaluation of midepigastric abdominal pain and abdominal bloating. Patient states his been going on for the last year. Patient states it has been getting worse recently. Patient states he has not taken any medication to help with his symptoms. States that eating and drinking does worsen his pain. Patient does admit to using street drugs including acid. He denies any nausea, vomiting , constipation, or diarrhea. Denies any hematochezia, melena, or hematemesis. Denies any hematuria, dysuria, urinary frequency, urinary urgency. Patient denies any recent rash, fever, chills, back pain, numbness, tingling, dizziness , weakness, headache, visual changes, or any other complaints. - Related Data Previous Rx's Medication Instructions Recorded Ranitidine HCl [Zantac] 150 mg PO HS #30 tab 01/31/18 Allergies Allergy/AdvReac Type Severity Reaction Status Date / Time azithromycin Allergy Unknown Verified 01/31/18 00:11 [From Zithromax Z-Bruno] Review of Systems ROS Statement: Those systems with pertinent positive or pertinent negative responses have been documented in the HPI. ROS Other: All systems not noted in ROS Statement are negative. Past Medical History Past Medical History: Liver Disease Additional Past Medical History / Comment(s): hep B/C History of Any Multi-Drug Resistant Organisms: None Reported Past Surgical History: Hernia Repair Additional Past Surgical History / Comment(s): liver biopsy x 3 Past Psychological History: ADD/ADHD, Anxiety, Bipolar, Depression, Schizophrenia Smoking Status: Current every day smoker Past Alcohol Use History: Occasional Past Drug Use History: Marijuana General Exam Limitations: no limitations General appearance: alert, in no apparent distress, other (This is a well- developed, well-nourished adult male patient in no acute distress. Vital signs upon presentation are temperature 98.6F, pulse 92, respirations 18, blood pressure 130/86, pulse ox 98% on room air.) Eye exam: Present: normal appearance, PERRL, EOMI. Absent: scleral icterus, conjunctival injection, periorbital swelling ENT exam: Present: normal exam, normal oropharynx, mucous membranes moist Respiratory exam: Present: normal lung sounds bilaterally. Absent: respiratory distress, wheezes, rales, rhonchi, stridor Cardiovascular Exam: Present: regular rate, normal rhythm, normal heart sounds. Absent: systolic murmur, diastolic murmur, rubs, gallop, clicks GI/Abdominal exam: Present: soft, normal bowel sounds. Absent: distended, tenderness, guarding, rebound, rigid Neurological exam: Present: alert, oriented X3, CN II-XII intact Skin exam: Present: warm, dry, intact, normal color. Absent: rash Course Vital Signs 01/31/18 00:07 Temperature 98.6 F Pulse Rate 92 Respiratory 18 Rate Blood Pressure 130/86 O2 Sat by Pulse 98 Oximetry Medical Decision Making - Medical Decision Making 22-year-old male patient presents the emergency department today for evaluation of midepigastric abdominal discomfort and abdominal bloating. Physical examination was relatively unremarkable. Patient had mild midepigastric tenderness. Labs reviewed and are unremarkable. Patient also requested testing for STDs but is not having any symptoms currently. I did send a urine for gonorrhea and chlamydia I will not treat at this time as he is asymptomatic. He is instructed to follow-up with primary care physician for recheck in 1-2 days. He is instructed follow up with gastroenterology for further evaluation and possible upper GI endoscopy. Return parameters were discussed in detail. He verbalizes understanding and agrees with this plan. - Lab Data Result diagrams: 01/31/18 02:02 01/31/18 02:02 Lab Results 01/31/18 01/31/18 01/31/18 Range/Units 02:02 02:02 02:02 WBC 10.9 H (3.8-10.6) k/uL RBC 4.83 (4.30-5.90) m/uL Hgb 15.0 (13.0-17.5) gm/dL Hct 42.4 (39.0-53.0) % MCV 88.0 (80.0-100.0) fL MCH 31.1 (25.0-35.0) pg MCHC 35.4 (31.0-37.0) g/dL RDW 12.9 (11.5-15.5) % Plt Count 225 (150-450) k/uL Neutrophils % 74 % Lymphocytes % 18 % Monocytes % 6 % Eosinophils % 1 % Basophils % 0 % Neutrophils # 8.0 H (1.3-7.7) k/uL Lymphocytes # 2.0 (1.0-4.8) k/uL Monocytes # 0.6 (0-1.0) k/uL Eosinophils # 0.1 (0-0.7) k/uL Basophils # 0.0 (0-0.2) k/uL Sodium 141 (137-145) mmol/L Potassium 3.5 (3.5-5.1) mmol/L Chloride 107 (98-107) mmol/L Carbon Dioxide 25 (22-30) mmol/L Anion Gap 9 mmol/L BUN 8 L (9-20) mg/dL Creatinine 0.70 (0.66-1.25) mg/dL Est GFR (CKD-EPI)AfAm >90 (>60 ml/min/1.73 sqM) Est GFR (CKD-EPI)NonAf >90 (>60 ml/min/1.73 sqM) Glucose 94 (74-99) mg/dL Calcium 10.0 (8.4-10.2) mg/dL Total Bilirubin 1.0 (0.2-1.3) mg/dL AST 24 (17-59) U/L ALT 27 (21-72) U/L Alkaline Phosphatase 54 (38-126) U/L Total Protein 7.6 (6.3-8.2) g/dL Albumin 4.7 (3.5-5.0) g/dL Amylase 43 (30-110) U/L Lipase 136 (23-300) U/L Urine Color Light Yellow Urine Appearance Clear (Clear) Urine pH 8.0 (5.0-8.0) Ur Specific [place] 1.008 (1.001-1.035) Urine Protein Negative (Negative) Urine Glucose (UA) Negative (Negative) Urine Ketones Negative (Negative) Urine Blood Negative (Negative) Urine Nitrite Negative (Negative) Urine Bilirubin Negative (Negative) Urine Urobilinogen <2.0 (<2.0) mg/dL Ur Leukocyte Esterase Negative (Negative) Urine Opiates Screen Not Detected (NotDetected) Ur Oxycodone Screen Not Detected (NotDetected) Urine Methadone Screen Not Detected (NotDetected) Ur Propoxyphene Screen Not Detected (NotDetected) Ur Barbiturates Screen Not Detected (NotDetected) U Tricyclic Antidepress Not Detected (NotDetected) Ur Phencyclidine Scrn Not Detected (NotDetected) Ur Amphetamines Screen Not Detected (NotDetected) U Methamphetamines Scrn Not Detected (NotDetected) U Benzodiazepines Scrn Not Detected (NotDetected) Urine Cocaine Screen Not Detected (NotDetected) U Marijuana (THC) Screen Detected H (NotDetected) - Radiology Data Radiology results: report reviewed, image reviewed Two-view x-ray of the abdomen is obtained. Bowel gas pattern is normal. There is no sign of intestinal structure pneumoperitoneum. Fecal pattern is normal. There is no evidence of a mass. Lung bases are clear. There are no pathologic calcifications over the kidneys. Impression by Dr. Kearney shows nonacute abdomen. Disposition Clinical Impression: Gastritis Disposition: HOME SELF-CARE Condition: Good Instructions: Gastritis (ED) Additional Instructions: Follow-up with gastroenterology for further evaluation and possible upper GI scope. Take medication as directed. Return here immediately for any new, worsening, or concerning symptoms. Prescriptions: Ranitidine HCl [Zantac] 150 mg PO HS #30 tab Is patient prescribed a controlled substance at d/c from ED?: No Referrals: None,Stated [Primary Care Provider] - 1-2 days Jessie Aquino MD [STAFF PHYSICIAN] - 1-2 days Time of Disposition: 02:48
[2018-01-31 02:22] LABS: Appearance,Urine Clear (Clear); Bilirubin,Urine Negative (Negative); Blood,Urine Negative (Negative); Color,Urine Light Yellow; Glucose,Urine (UA) Negative (Negative); Ketones,Urine Negative (Negative); Leukocyte Esterase,Urine Negative (Negative); Nitrite,Urine Negative (Negative); Protein,Urine Negative (Negative); Specific Gravity,Urine 1.008 (1.001-1.035); Urobilinogen,Urine <2.0 mg/dL (<2.0)
[2018-01-31 02:23] LABS: Basophils % (A) 0 %; Eosinophils # (A) 0.1 k/uL (0-0.7); Eosinophils % (A) 1 %; HCT 42.4 % (39.0-53.0); Lymphocytes % (A) 18 %; MCH 31.1 pg (25.0-35.0); MCHC 35.4 g/dL (31.0-37.0); Mean Platelet Volume 7.3; Monocytes # (A) 0.6 k/uL (0-1.0); Monocytes % (A) 6 %; Neutrophils % (A) 74 %; Platelet Count 225 k/uL (150-450); RBC 4.83 m/uL (4.30-5.90); RDW 12.9 % (11.5-15.5); WBC 10.9 k/uL (3.8-10.6)
[2018-01-31 02:31] LABS: ALT 27 U/L (21-72); AST 24 U/L (17-59); Albumin 4.7 g/dL (3.5-5.0); Alkaline Phosphatase 54 U/L (38-126); Amylase 43 U/L (30-110); Anion Gap 9 mmol/L; Blood Urea Nitrogen 8 mg/dL (9-20); Carbon Dioxide 25 mmol/L (22-30); Chloride 107 mmol/L (98-107); Glucose 94 mg/dL (74-99); Lipase 136 U/L (23-300); Potassium 3.5 mmol/L (3.5-5.1); Sodium 141 mmol/L (137-145); Total Protein 7.6 g/dL (6.3-8.2)
--- NOTE | 2018-01-31 02:32 | XR ---
EXAMINATION TYPE: XR KUB DATE OF EXAM: 01/31/2018 COMPARISON: NONE HISTORY: Abdominal pain TECHNIQUE: 2 views FINDINGS: Bowel gas pattern is normal. There is no sign of intestinal obstruction or pneumoperitoneum . Fecal pattern is normal. There is no evidence of a mass. Lung bases are clear. There are no patholo gic calcifications over the kidneys. IMPRESSION: Nonacute abdomen.
[2018-01-31 02:39] LABS: Amphetamine Screen,Urine Not Detected (NotDetected); Barbiturate Screen,Urine Not Detected (NotDetected); Benzodiazepines Screen,Urine Not Detected (NotDetected); Cocaine Screen,Urine Not Detected (NotDetected); Methadone Screen, Urine Not Detected (NotDetected); Opiate Screen,Urine Not Detected (NotDetected); Oxycodone Screen, Urine Not Detected (NotDetected); Phencyclidine Screen,Urine Not Detected (NotDetected); Tricyclic Antidepressant,Urine Not Detected (NotDetected); Urn Cannabinoid Scrn Detected (NotDetected)
[2018-01-31 03:45] VITALS: BP 122/62; PULSE 68; TEMP 98.2
[2018-02-02 09:36] LABS: N. gonorrhoeae,PCR Negative (Neg,Equiv); Neisseria Source Urine
[2018-02-02 09:37] LABS: C. trachomatis,PCR Positive (Neg,Equiv); Chlamydia trachomatis Source Urine
== END 2018-01-31 03:32 | disposition home or self-care (01) ==
LOC: EC 00:04
DX: K29.70 Gastritis, unspecified, without bleeding (principal); F17.200 Nicotine dependence, unspecified, uncomplicated; Z88.1 Allergy status to other antibiotic agents
CPT/HCPCS: 36415; 74018; 80053; 80306; 81003; 82150; 83690; 85025; 87491; 87591; 93005; 99284

== ENCOUNTER 2018-04-04 11:58 | Day surgery (SDC) | payer MEDICARE, OTHER ==
--- NOTE | 2018-04-02 20:44 | P.GSHP ---
History of Present Illness H&P Date: 04/02/18 Chief Complaint: Left groin pain secondary to left varicocele. The patient has a history of left inguinal and scrotal pain which has been present since late spring. He was evaluated through the [facility] system and a scrotal ultrasound identified a left varicocele and bilateral epididymal cysts. He says his pain is worse when he is on his feet especially if he is working. He was initially evaluated by me in January 2017 and a grade 3 left varicocele was confirmed. I discussed further observation versus surgical treatment in the patient was originally scheduled for the surgery but the surgery was canceled due to the inability to communicate with the patient by phone at that time. He was reevaluated by me in February 2018 and says that his pain continues intermittently when he is on his feet. It resolves when he is supine. After rereview of the treatment options the patient has elected to proceed with surgical treatment via ligation of the spermatic veins at the level of the external inguinal ring. - Constitutional Constitutional: Reports fatigue - Cardiovascular Cardiovascular: Reports palpitations, Reports shortness of breath - Gastrointestinal Gastrointestinal: Reports heartburn - Genitourinary (Male) Genitourinary: Reports as per HPI - Psychiatric Psychiatric: Reports anxiety, Reports depression, Reports paranoia Past Medical History Past Medical History: GERD/Reflux, Liver Disease Additional Past Medical History / Comment(s): varicocele,hep B/C(states "had yellow jaundice as a child but not hepatitis b or c") History of Any Multi-Drug Resistant Organisms: None Reported Past Surgical History: Hernia Repair Additional Past Surgical History / Comment(s): liver biopsy x 3 Additional Past Anesthesia/Blood Transfusion Reaction / Comment(s): pt stated "woke up with prior surgery and pulled tube in my throat out. I don't ever want another one put in". unknown family hx Smoking Status: Current every day smoker - Past Family History Mother History Unknown: Yes Medications and Allergies Home Medications Medication Instructions Recorded Confirmed Type Ranitidine HCl [Zantac] 150 mg PO HS #30 tab 01/31/18 03/29/18 Rx Allergies Allergy/AdvReac Type Severity Reaction Status Date / Time azithromycin Allergy Rash/Hives Verified 03/29/18 17:26 [From Zithromax Z-Bruno] Surgical - Exam - General well developed, well nourished - ENT no hearing loss - Neck no masses, no lymphadectomy - Cardiovascular Rhythm: regular Abnormal Heart Sounds: no systolic murmur, no diastolic murmur - Abdomen Abdomen: soft, non tender Hernia: no inguinal - Genitourinary normal penis with no external lesions, testicles non-tender (testicles are both slightly small. There is a Grade 3 left varicocele which is prominent while standing or with valsalva.) Assessment and Plan (1) Left varicocele Narrative/Plan: The patient will undergo ligation of the left spermatic veins at the level of the external inguinal ring under general anesthesia. He is aware of the operative risks which include anesthesia, bleeding, infection and persistence or recurrence of right scrotal pain. Status: Acute Code(s): I86.1 - SCROTAL VARICES SNOMED Code(s): 43487237
[~2018-04-04 11:58] MED LIST: ceFAZolin IN SWFI 2 GM/20 ML SYRINGE IVP ONE
[2018-04-04] MEDS ORDERED: LIDOCAINE 1% 20 ML VIAL (10MG/ML) FOR IV START INTRADERMA ONE (13:38)
[2018-04-04] MEDS ORDERED: LACTATED RINGERS 1,000 ML IV ONE (13:38)
[2018-04-04] MEDS ORDERED: DEXAMETHASONE SOD PHOS (MDV) 100 MG/10 ML VIAL IV ONE (13:39)
[2018-04-04] MEDS ORDERED: ONDANSETRON 4 MG/2 ML VIAL IVP ONE (13:39)
[2018-04-04] MEDS ORDERED: MIDAZOLAM 2 MG/2 ML VIAL IV ONE (13:40)
[2018-04-04] MEDS ORDERED: fentaNYL (PF) 50 MCG/ML 2 ML AMP ONE (15:11)
[2018-04-04] MEDS ORDERED: MIDAZOLAM 2 MG/2 ML VIAL ONE (15:11)
[2018-04-04] MEDS ORDERED: LIDOCAINE 1% INJ 10MG/ML (20 ML MDV) ONE (15:11)
[2018-04-04] MEDS ORDERED: SUCCINYLCHOLINE CHLORIDE 100 MG/5 ML SYR IV ONE (15:11)
[2018-04-04] MEDS ORDERED: PROPOFOL 10 MG/ML 20 ML VIAL IV ONE (15:11)
[2018-04-04] MEDS ORDERED: BUPIVACAINE (PF) 0.25% 30 ML VIAL SQ ONE ×2 (15:23→15:51)
--- NOTE | 2018-04-04 16:15 | P.OP ---
Date of Procedure: 04/04/18 Preoperative Diagnosis: Left scrotal pain secondary to left varicocele Postoperative Diagnosis: Left scrotal pain secondary to left varicocele Procedure(s) Performed: Ligation of left external spermatic veins Anesthesia: ROSIO Surgeon: Miguel Angel Mtz Estimated Blood Loss (ml): 2 Pathology: none sent Condition: stable Disposition: PACU Indications for Procedure: The patient is a 22-year-old male with a history of left scrotal pain which occurs mainly while he's on his feet or straining. The patient has a grade 3 left varicocele. I explained to the patient that it's unclear whether all of his pain is related to the left varicocele. Options including further observation or spermatic vein ligation were reviewed several times and the patient wishes to proceed with surgical treatment. Description of Procedure: The patient was taken the operative suite where adequate general anesthesia via orotracheal intubation was instituted. He was placed in the supine position. The hair in the left groin was clipped. The lower abdomen and groins and scrotum were then prepped with Betadine solution and draped in a sterile fashion. A 3-4 cm incision was made in a skin crease overlying the left external inguinal ring. Bleeding vessels were controlled using electrocautery. The subcutaneous fat was incised with electrocautery. Paty's fascia was opened. The left spermatic cord was identified as it exited from the left external inguinal ring. The external inguinal ring was opened for approximately 1 cm. The external spermatic fascia was incised exposing the cord structures. The ilioinguinal nerve was isolated external to the external spermatic fascia. The vas was identified and displaced from the spermatic cord structures. Several large veins were identified at the external ring and divided between 3-0 silk ties. Care was taken not to interrupt the testicular artery. The external spermatic fascia and fibers of the external oblique fascia were closed using running 4-0 Vicryl. Care was taken not to incorporate the ilioinguinal nerve. Paty's fascia was closed using interrupted 4-0 Vicryl. 0.25% bupivacaine was infiltrated around the external ring and skin edges for postoperative pain control. The skin was closed using running 3-0 Prolene placed in a subcuticular fashion. Mastisol and Steri-Strips were then applied over the incision. The patient tolerated procedure well and left the operative room awake and in satisfactory condition. Blood loss was less than 2 mL. Patient will be seen back in follow-up in 7 days.
[2018-04-04 16:27] VITALS: TEMP 97
[2018-04-04 16:32] VITALS: RESP 16
[2018-04-04] MEDS ORDERED: KETOROLAC 30 MG/ML 1 ML VIAL IVP ONE (16:38)
[2018-04-04 17:13] VITALS: PULSE 71
[2018-04-04 17:27] VITALS: BP 125/70
== END 2018-04-04 17:42 | disposition home or self-care (01) ==
LOC: OR 11:58
PROVIDERS: ATTEND Urology
DX: I86.1 Scrotal varices (principal); K21.9 Gastro-esophageal reflux disease without esophagitis; F17.210 Nicotine dependence, cigarettes, uncomplicated; F90.9 Attention-deficit hyperactivity disorder, unspecified type; F41.9 Anxiety disorder, unspecified; F32.9 Major depressive disorder, single episode, unspecified; Z88.1 Allergy status to other antibiotic agents; Z79.899 Other long term (current) drug therapy
CPT/HCPCS: 55530; J2250; J2405; J2001; J3010; J1885; J1100; J0330; J2704